=== PATIENT | male | born 1960 | race African-American/Black ===

== ENCOUNTER 2024-09-09 12:42 | Inpatient (IN) | payer BC ==
[2024-09-09 13:23] VITALS: BMI 21.6
[2024-09-09] MEDS ORDERED: guaiFENesin 600 MG TABLET.ER (FP) PO PRN (15:27)
[2024-09-09] MEDS ORDERED: MAG HYDROX/AL HYDROX/SIMETH 30 ML UNIT-DOSE CUP PO PRN (15:27)
[2024-09-09] MEDS ORDERED: BENZOCAINE/MENTHOL (CHLORASEPTIC ) LOZENGE MM PRN (15:27)
[2024-09-09] MEDS ORDERED: IBUPROFEN 400 MG TABLET (FP) PO PRN (15:27)
[2024-09-09] MEDS ORDERED: NALOXONE (NARCAN) HCL 4 MG/0.1 ML SPRAY NS PRN (15:27)
[2024-09-09] MEDS ORDERED: ACETAMINOPHEN 325 MG TABLET (FP) PO PRN (15:27)
[2024-09-09] MEDS ORDERED: MAGNESIUM HYDROX 2400MG/30ML ORAL SUSPENSION 30 ML CUP PO PRN (15:27)
[2024-09-09] MEDS ORDERED: NICOTINE POLACRILEX 2 MG LOZENGE BC PRN (15:27)
[2024-09-09] MEDS ORDERED: NICOTINE POLACRILEX 2 MG GUM BUC PRN (15:27)
[2024-09-09] MEDS ORDERED: IBUPROFEN 600 MG TABLET (FP) PO PRN (15:27)
[2024-09-09] MEDS ORDERED: BENZONATATE 200 MG CAPSULE PO PRN (15:27)
[2024-09-09] MEDS ORDERED: POLYETHYLENE GLYCOL (HEALTHYLAX) 3350 17 GM PACKET PO PRN (15:27)
[2024-09-09] MEDS ORDERED: P-EPHED 60MG/TRIPROLIDI 2.5MG TABLET PO PRN (15:27)
[2024-09-09] MEDS ORDERED: LOPERAMIDE HCL 2 MG CAPSULE PO PRN (15:27)
[2024-09-09] MEDS ORDERED: TUBERCULIN PPD 5 TU/0.1ML VIAL ID ONE (19:28)
[2024-09-09] MEDS: THIAMINE 100 MG TABLET PO SCH (21:53)
[2024-09-09] MEDS: MELATONIN 5 MG TABLETS PO SCH (21:54)
[2024-09-10] MEDS: PRENATAL VITAMINS W/ FOLIC ACID TABLET (FP) PO SCH (10:26)
[2024-09-10 12:05] LABS: HEMATOCRIT 31.1 % (35.4-49); HEMOGLOBIN 10.5 GM/dL (11.7-16.9); MCH 30.5 pg (25.7-33.7); MCHC 33.8 g/dl (32.0-35.9); PLATELET COUNT 136 10^3/uL (134-434); POTASSIUM 3.9 mmol/L (3.5-5.1); RBC 3.46 M/mm3 (4.00-5.60)
[2024-09-10 12:16] LABS: CALCIUM 8.5 mg/dL (8.5-10.1)
[2024-09-10 12:17] LABS: ALBUMIN 2.9 g/dl (3.4-5.0); BLOOD UREA NITROGEN 15.6 mg/dL (7-18)
[2024-09-10 12:20] LABS: CREATININE 0.8 mg/dL (0.55-1.3)
[2024-09-10 12:21] LABS: BILIRUBIN,TOTAL 0.7 mg/dL (0.2-1)
[2024-09-10 12:22] LABS: TOT PROT 6.9 g/dl (6.4-8.2)
[2024-09-10 12:37] LABS: SYPHILIS W/ RPR CONF REACTIVE (NONREACTIVE)
[2024-09-10] MEDS: VITAMINS A AND D TOPICAL OINTMENT TP SCH (13:00)
[2024-09-13] MEDS: hydrOXYzine PAMOATE 25 MG CAPSULE (FP) PO PRN (21:36)
[2024-09-14 12:27] LABS: URINE APPEARANCE CLEAR; URINE BILIRUBIN NEGATIVE (NEGATIVE); URINE COLOR YELLOW; URINE GLUCOSE (UA) NEGATIVE (NEGATIVE); URINE KETONE NEGATIVE (NEGATIVE); URINE LEUK ESTERASE NEGATIVE (NEGATIVE); URINE NITRITE NEGATIVE (NEGATIVE); URINE PROTEIN NEGATIVE (NEGATIVE); URINE UROBILINOGEN 0.2 mg/dL (0.2-1.0)
[2024-09-16 06:50] VITALS: BP 122/83; PULSE 88; RESP 18; TEMP 97.8
== END 2024-09-16 12:45 | disposition home or self-care (01) | DRG 772 ==
LOC: YASAS 12:42 → Y3E 18:20 → Y3NR 09-15 23:26
PROVIDERS: ADMIT Psychiatry & Neurology Pain Medicine; ATTEND Psychiatry & Neurology Pain Medicine
PROC: HZ42ZZZ Group Counseling for Substance Abuse Treatment, Cognitive-Behavioral (ICD-10-PCS; principal; 2024-09-09)
DX: F11.20 Opioid dependence, uncomplicated (principal); F14.20 Cocaine dependence, uncomplicated; F12.20 Cannabis dependence, uncomplicated; F19.24 Other psychoactive substance dependence with psychoactive substance-induced mood disorder; F17.210 Nicotine dependence, cigarettes, uncomplicated; U07.1 COVID-19; K40.90 Unilateral inguinal hernia, without obstruction or gangrene, not specified as recurrent; L97.911 Non-pressure chronic ulcer of unspecified part of right lower leg limited to breakdown of skin; L98.491 Non-pressure chronic ulcer of skin of other sites limited to breakdown of skin; R60.0 Localized edema; R73.03 Prediabetes
CPT/HCPCS: 36415; 80053; 80305; 80307; 81003; 82962; 85027; 86593; 86780; 86803; 87811; 93005; 93010